=== PATIENT | male | born 1955 | race Caucasian/White ===

== ENCOUNTER 2022-03-13 07:43 | Day surgery (SDC) | payer MEDICARE, BC ==
[2022-03-13] MEDS ORDERED: Depo-Medrol 40 MG/ML IM ONE (07:44)
[2022-03-13] MEDS ORDERED: LIDOCAINE HCL 2% 100 MG/5 ML IJ ONE (07:44)
[2022-03-13] MEDS ORDERED: DIPRIVAN 200 MG/20 ML IV ONE (09:21)
[2022-03-13] MEDS ORDERED: Lactated Ringers 1,000 ML IV ONE (09:45)
--- NOTE | 2022-03-13 11:03 | XRAY ---
Indication: Right T5-T8 MBB. Intraoperative fluoroscopy provided for 28 seconds. 2 digital spot image submitted for interpretation demonstrates posterior needle tips projecting over the expected right T5-T8 nerve roots. Correlate with intraoperative findings/report.
--- NOTE | 2022-03-13 11:34 | XRAY ---
28 seconds fluoroscopy time in surgery for right T5-T8 MBB.
== END 2022-03-13 09:50 | disposition home or self-care (01) ==
LOC: SDC-PAIN 07:43
PROVIDERS: ATTEND Psychiatry & Neurology Pain Medicine
DX: M47.814 Spondylosis without myelopathy or radiculopathy, thoracic region (principal); E11.9 Type 2 diabetes mellitus without complications; Z79.899 Other long term (current) drug therapy
CPT/HCPCS: 64490; 64491; 64492; 72072; 77002; 82947; J1030; J2704